=== PATIENT | male | born 1980 | race African-American/Black ===

== ENCOUNTER 2017-05-11 17:32 | Emergency (ER) | payer OTHER ==
[2017-05-11 17:48] VITALS: BP 150/90; PULSE 83; TEMP 98.4; BMI 25.7
[2017-05-11] MEDS ORDERED: HYDROmorphone HCL CARPU-JECT 2 MG/1 ML DISP.SYRIN IVPB ONE (18:24)
--- NOTE | 2017-05-11 18:29 | PDOC ---
History of Present Illness - General Chief Complaint: Pain, Acute Stated Complaint: PAIN, ACUTE Time Seen by Provider: 05/11/17 18:19 History Source: Patient - History of Present Illness Timing/Duration: other (today) Severity: severe Associated Symptoms: denies: chest pain, cough, fever/chills, headaches, nausea/ vomiting, shortness of breath, syncope Past History - Past Medical History Allergies/Adverse Reactions: Allergies Allergy/AdvReac Type Severity Reaction Status Date / Time No Known Allergies Allergy Verified 05/11/17 18:32 Home Medications: Ambulatory Orders Cholecalciferol (Vitamin D3) [Vitamin D3] 2,000 units PO DAILY 05/11/17 Cyanocobalamin (Vitamin B-12) [Vitamin B-12] 1,000 mg PO DAILY 05/11/17 Folic Acid 1 mg PO DAILY 05/11/17 Potassium Chloride 10 meq PO DAILY 05/11/17 Anemia: Yes (SICKLE CELL) - Immunization History Immunization Up to Date: Yes - Suicide/Smoking/Psychosocial Hx Suicidal Ideation: No Smoking History: Current every day smoker Number of Cigarettes Smoked Daily: 4 Information on smoking cessation initiated: No Hx Alcohol Use: No Drug/Substance Use Hx: No Substance Use Type: None Review of Systems - Review of Systems Constitutional: No: Chills, Fever Respiratory: No: Cough, Shortness of Breath Cardiac (ROS): No: Chest Pain, Lightheadedness, Palpitations ABD/GI: Yes: Abdominal cramping. No: Diarrhea, Nausea, Vomiting : No: Burning, Dysuria, Flank Pain Musculoskeletal: Yes: Back Pain, Joint Pain. No: Joint Swelling *Physical Exam - Vital Signs Last Vital Signs Temp Pulse Resp BP Pulse Ox 98.4 F 83 16 150/90 99 05/11/17 17:44 05/11/17 17:44 05/11/17 17:44 05/11/17 17:44 05/11/17 17:44 - Physical Exam General Appearance: Yes: Appropriately Dressed, Moderate Distress HEENT: positive: Normal Voice Neck: positive: Supple Respiratory/Chest: positive: Lungs Clear, Normal Breath Sounds. negative: Respiratory Distress Cardiovascular: positive: Regular Rate, S1, S2 Gastrointestinal/Abdominal: positive: Normal Bowel Sounds, Tender (diffusely), Soft. negative: Distended, Guarding, Rebound Musculoskeletal: positive: Other (diffuse ttp to back). negative: CVA Tenderness Extremity: positive: Normal Inspection, Normal Range of Motion, Other (no red, hot, swollen joint) Integumentary: positive: Dry, Warm, Other (well kam r chest port) Neurologic: positive: Fully Oriented, Alert, Normal Mood/Affect ED Treatment Course - LABORATORY CBC & Chemistry Diagram: 05/11/17 18:32 05/11/17 18:32 - RADIOLOGY Radiology Studies Ordered: Category Date Time Status CHEST X-RAY PORTABLE* [RAD] Stat Radiology 05/11/17 18:23 Ordered Medical Decision Making - Medical Decision Making 05/11/17 18:24 36-year-old male, history of sickle cell anemia on hydroxyurea, folic acid, and other vitamins, currently does not take any pain medication because he does not want build tolerance to meds as per patient, 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 Lagos, at [facility], was at work today in [employer] when he developed diffuse abdominal, back and multiple joint pain, consistent with his pain crisis. No cough, chest pain, shortness of breath, change in bowel movements, dysuria, nausea, vomiting, fever or chills. Patient states he has been getting more frequent pain crisis secondary to the weather. States most of the time he comes to the ED, he is usually treated and able to be discharged but occasionally needs admission. Of note, patient reports he is a very difficult stick and has subsequently had a right chest port placed, which is what ED staff uses. Last time was use was 1 month ago at outside ER with no difficulty as per patient See exam SSD w/ usual pain crises -pain control -IVF -labs -reassess 05/11/17 18:39 Signed out to ASHER Nguyen pending w/u and reassessment *DC/Admit/Observation/Transfer Diagnosis at time of Disposition: Sickle cell pain crisis, Hypokalemia - Discharge Dispostion Disposition: HOME - Patient Instructions Printed Discharge Instructions: Sickle Cell Anemia Additional Instructions: drink plenty of fluids take potassium tablet as previously prescribed. follow up with your doctor as soon as possible. return to the ER if symptoms worsen - Post Discharge Activity Work/School Note: Back to Work
[2017-05-11] MEDS ORDERED: DEXTROSE 5%-0.45% SALINE 1,000 ML IV SCH (18:30)
[2017-05-11] MEDS ORDERED: HYDROmorphone HCL CARPU-JECT 2 MG/1 ML DISP.SYRIN ONE ×2 (18:34→20:06)
--- NOTE | 2017-05-11 19:18 | PDOC ---
*Physical Exam - Vital Signs Last Vital Signs Temp Pulse Resp BP Pulse Ox 98.4 F 83 16 150/90 99 05/11/17 17:44 05/11/17 17:44 05/11/17 17:44 05/11/17 17:44 05/11/17 17:44 - Physical Exam General Appearance: Yes: Appropriately Dressed Respiratory/Chest: positive: Lungs Clear, Normal Breath Sounds Gastrointestinal/Abdominal: positive: Normal Bowel Sounds, Tender (generalized) , Soft Extremity: positive: Normal Capillary Refill Integumentary: positive: Normal Color, Dry, Warm Neurologic: positive: Fully Oriented, Alert ED Treatment Course - LABORATORY CBC & Chemistry Diagram: 05/11/17 18:32 05/11/17 18:32 - Medications Given in the ED: ED Medications Discontinued Medications Generic Name Dose Route Start Last Admin Trade Name Barrett PRN Reason Stop Dose Admin Hydromorphone HCl 2 mg 05/11/17 18:24 05/11/17 18:32 Dilaudid Injection - IVPB 05/11/17 18:25 2 mg ONCE ONE Administration Medical Decision Making - Medical Decision Making 05/11/17 19:56 Patient reports no relief in pain. pain is generalized abdomen, back and joints. reports normal hgb 10 last crisis was one month ago. 05/11/17 21:53 patient is reports pain relief. will follow up in hematology clinic at [facility] tomorrow. *DC/Admit/Observation/Transfer Diagnosis at time of Disposition: Sickle cell pain crisis, Hypokalemia - Discharge Dispostion Disposition: HOME - Patient Instructions Printed Discharge Instructions: Sickle Cell Anemia Additional Instructions: drink plenty of fluids take potassium tablet as previously prescribed. follow up with your doctor as soon as possible. return to the ER if symptoms worsen - Post Discharge Activity Work/School Note: Back to Work
[2017-05-11 19:19] LABS: BASOPHIL 0.7 % (0-2.0); EOSINOPHIL 0.5 % (0-4.5); MEAN PLT VOLUME 7.4 fl (7.5-11.1); NEUTROPHILS 53.6 % (42.8-82.8); PLATELET COUNT 226 K/MM3 (134-434); RDW 17.6 % (11.9-15.9); WHITE BLOOD COUNT 7.8 K/mm3 (4.0-10.0)
[2017-05-11 19:20] LABS: MCH 42.5 pg (25.7-33.7)
[2017-05-11 19:42] LABS: ALBUMIN 3.6 g/dl (3.4-5.0); ANION GAP 5 (8-16); BILIRUBIN,TOTAL 0.9 mg/dL (0.2-1.0); CO2 31 mmol/L (21-32); CREATININE 0.7 mg/dL (0.7-1.3); GLUCOSE,RANDOM 107 mg/dL (74-106); SGOT/AST 17 U/L (15-37); SGPT/ALT 22 U/L (12-78); TOT PROT 7.1 g/dl (6.4-8.2)
[2017-05-11 19:45] LABS: ALK PHOS 117 U/L (45-117); CPK 68 IU/L (39-308); TROPONIN I < 0.02 ng/ml (0.00-0.05)
[2017-05-11] MEDS ORDERED: HYDROmorphone HCL CARPU-JECT 2 MG/1 ML DISP.SYRIN IVPUSH ONE (19:56)
[2017-05-11] MEDS: KCL 10 MEQ IVPB 100 ML IVPB SCH ×2 (20:02→20:15)
[2017-05-11 20:07] LABS: MACROCYTOSIS 3+; PLATELET ESTIMATE ADEQUATE (NORMAL); POIKILOCYTOSIS 1+; POLYCHROMASIA 1+
[2017-05-11] MEDS ORDERED: KCL 10 MEQ IVPB 200 ML IVPB ONE (20:07)
[2017-05-11 20:08] LABS: OVALOCYTE 1+; TARGET CELLS 1+; TEAR DROP CELLS 1+
[2017-05-11 20:10] LABS: HOWELL-JOLLY BODIES SEEN
[2017-05-11] MEDS ORDERED: SODIUM CHLORIDE 1,000 ML IV SCH (20:15)
--- NOTE | 2017-05-12 09:42 | EKG ---
Test Reason : Blood Pressure : / mmHG Vent. Rate : 067 BPM Atrial Rate : 067 BPM P-R Int : 168 ms QRS Dur : 132 ms QT Int : 436 ms P-R-T Axes : 063 -05 068 degrees QTc Int : 460 ms NORMAL SINUS RHYTHM LEFT VENTRICULAR HYPERTROPHY WITH QRS WIDENING RIGHT BUNDLE BRANCH BLOCK ABNORMAL ECG NO PREVIOUS ECGS AVAILABLE Confirmed by WASHINGTON LOMBARDO MD ([id number]) on 05/12/2017 9:41:47 AM Referred By: Confirmed By:WASHINGTON LOMBARDO MD
== END 2017-05-11 22:05 | disposition home or self-care (01) ==
LOC: JER 17:32
PROC: 3E0337Z Introduction of Electrolytic and Water Balance Substance into Peripheral Vein, Percutaneous Approach (ICD-10-PCS; principal; 2017-05-11)
PROC: 3E033GC Introduction of Other Therapeutic Substance into Peripheral Vein, Percutaneous Approach (ICD-10-PCS; 2017-05-11)
DX: D57.00 Hb-SS disease with crisis, unspecified (principal); F17.210 Nicotine dependence, cigarettes, uncomplicated
CPT/HCPCS: 36415; 71010-TC; 80053; 84484; 85025; 85044; 93005; 93010; 99283-25

== ENCOUNTER 2017-06-27 10:32 | Emergency (ER) | payer OTHER ==
[2017-06-27 10:37] VITALS: TEMP 98.2; BMI 25.7
[2017-06-27] MEDS ORDERED: SODIUM CHLORIDE 1,000 ML IV ONE (11:06)
[2017-06-27] MEDS ORDERED: HYDROmorphone HCL CARPU-JECT 2 MG/1 ML DISP.SYRIN IVPUSH ONE ×2 (11:27→13:23)
--- NOTE | 2017-06-27 11:32 | PDOC ---
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 Lagos, at [facility], who presents to the emergency department with complaint of diffuse abdominal, shortness of breath, back pain and multiple joint pain, consistent with his usual sickle- cell pain crisis. The patient states he has been getting more frequent pain crisis secondary to the increased stress recently. He reports when he is seen in the ED for his crisis he usually receives 3 of Dilaudid, IV fluids, and sometimes potassium because it tends to be low. He denies chest pain, headache and dizziness. He denies fever, chills, nausea, vomit, diarrhea and constipation. He denies dysuria, frequency, urgency and hematuria. Allergies: NKDA Surgical Hx: cholecystectomy <Anushka Padilla - Last Filed: 06/27/17 11:37> <Omar Lopez - Last Filed: 06/27/17 14:56> - General Chief Complaint: Pain Stated Complaint: SICKLE CELL CRISIS Time Seen by Provider: 06/27/17 10:47 Past History <Anushka Padilla - Last Filed: 06/27/17 11:37> - Past Medical History Anemia: Yes (SICKLE CELL) CVA: No COPD: No - Surgical History Cholecystectomy: Yes - Immunization History Immunization Up to Date: Yes - Suicide/Smoking/Psychosocial Hx Smoking History: Current every day smoker Number of Cigarettes Smoked Daily: 10 Information on smoking cessation initiated: Yes 'Breaking Loose' booklet given: 06/27/17 Hx Alcohol Use: No Drug/Substance Use Hx: No Substance Use Type: None <Omar Lopez - Last Filed: 06/27/17 14:56> - Past Medical History Allergies/Adverse Reactions: Allergies Allergy/AdvReac Type Severity Reaction Status Date / Time No Known Allergies Allergy Verified 06/27/17 10:33 Home Medications: Ambulatory Orders Cholecalciferol (Vitamin D3) [Vitamin D3] 2,000 units PO DAILY 05/11/17 Cyanocobalamin (Vitamin B-12) [Vitamin B-12] 1,000 mg PO DAILY 05/11/17 Folic Acid 1 mg PO DAILY 05/11/17 Potassium Chloride 10 meq PO DAILY 05/11/17 Hydroxyurea [Hydrea 500Mg Capsule -] 1,000 mg PO DAILY 06/27/17 Magnesium Oxide [Mag-Ox -] 800 mg PO DAILY 06/27/17 Multivitamin [One Daily] 1 each PO DAILY 06/27/17 Review of Systems - Review of Systems Able to Perform ROS?: Yes <Anushka Padilla - Last Filed: 06/27/17 11:37> - Review of Systems Constitutional: No: Chills, Fever HEENTM: Yes: Nose Congestion. No: Throat Pain Respiratory: No: Cough, Shortness of Breath Cardiac (ROS): No: Chest Pain, Edema, Palpitations, Syncope ABD/GI: No: Diarrhea, Nausea, Vomiting : No: Frequency, Hematuria Musculoskeletal: Yes: Joint Pain, Muscle Pain Neurological: No: Headache All Other Systems: Reviewed and Negative <Omar Lopez - Last Filed: 06/27/17 14:56> *Physical Exam - Vital Signs Last Vital Signs Temp Pulse Resp BP Pulse Ox 98.2 F 73 20 144/97 99 06/27/17 10:33 06/27/17 10:33 06/27/17 10:33 06/27/17 10:33 06/27/17 10:33 - Physical Exam Comments: 06/27/17 11:37 GENERAL: The patient is awake, alert, and fully oriented, in no acute distress. HEAD: Normal with no signs of trauma. EYES: Pupils equal, round and reactive to light, extraocular movements intact, sclera anicteric, conjunctiva clear with no pallor. ENT: Ears normal, nares patent, oropharynx clear without exudates. Moist mucous membranes. NECK: Normal range of motion, supple without lymphadenopathy, JVD, or masses. LUNGS: Breath sounds equal, clear to auscultation bilaterally. No wheeze/ crackles. HEART: (+) Systolic ejection murmur. Regular rate and rhythm, normal S1 and S2 without rubs or gallops. ABDOMEN: Soft/nontender/nondistended. BS wnl. No guarding or rebound. No palpable masses. No hepatosplenomegaly. EXTREMITIES: (+) Decreased strength to bilateral hands secondary to pain. Normal range of motion, no edema. No clubbing or cyanosis. No cords, erythema, or tenderness. NEUROLOGICAL: Cranial nerves II through XII grossly intact. Normal speech, normal gait. PSYCH: Normal mood, normal affect. SKIN: Warm, Dry, normal turgor, no rashes or lesions noted. <Anushka Padilla - Last Filed: 06/27/17 11:37> - Vital Signs Last Vital Signs Temp Pulse Resp BP Pulse Ox 98.2 F 73 20 144/97 99 06/27/17 10:33 06/27/17 10:33 06/27/17 10:33 06/27/17 10:33 06/27/17 10:33 <Omar Lopez - Last Filed: 06/27/17 14:56> ED Treatment Course - LABORATORY CBC & Chemistry Diagram: 06/27/17 12:10 06/27/17 12:10 <Omar Lopez - Last Filed: 06/27/17 14:56> Medical Decision Making - Medical Decision Making 06/27/17 11:29 A portion of this note was documented by scribe services under my direction. I have reviewed the details of the note, within reason, and agree with the documentation with the following case summary and management plan written by me. 36-year-old male with history of sickle cell followed primarily at [facility] hematology clinic maintained on folic acid and hydroxyurea with complications in the past as noted presents with body aches for about 24 hours typical of his past crisis pain. Reports extremity and abdominal pains in the setting of 1-2 days of nasal congestion/rhinorrhea, no specific chest pain or difficulty breathing, no fevers or chills. Patient has ED visits every 2-3 months, last here about 6 weeks ago. Last admission was about 4 months ago, last transfusion was about one to 2 years ago. Vital signs normal. Mild distress secondary to pain, otherwise no respiratory distress. Lungs are clear, initial inspiratory basilar crackles that clear consistent with atelectasis Abdomen is soft No evidence of joint swelling or warmth or effusion, neurovascularly intact throughout 36-year-old male with sickle cell crisis, normal vital signs and without any respiratory distress. Likely crisis in the setting of possible viral URI. Check labs, chest x-ray IV fluids, pain control Reassess 06/27/17 14:52 K remains low at 2.9 and was repleted. CXR without acute changes or abnormalities. CBC at baseline with Hgb 9.1 and retic count 5.29. LFT wnl. Pt received dilaudid 2mg IV x2 with resolution of his sxs, now sitting up and eating a sandwich. Feels much better, pain has resolved, requesting discharge and f/u with his [facility] Maker at [facility]. understands return criteria, has his meds at home. <Omar Lopez - Last Filed: 06/27/17 14:56> *DC/Admit/Observation/Transfer - Attestations Scribe Attestion: 06/27/17 11:38 Documentation prepared by Anushka Padilla, acting as medical surgical tech for Omar Lopez MD, <Anushka Padilla - Last Filed: 06/27/17 11:37> <Omar Lopez - Last Filed: 06/27/17 14:56> Diagnosis at time of Disposition: Sickle cell pain crisis - Discharge Dispostion Disposition: HOME Condition at time of disposition: Improved - Referrals Referrals: STAFF,NOT ON [Primary Care Provider] - Ludwin Nguyen MD [Staff Physician] - - Patient Instructions Printed Discharge Instructions: DI for Sickle Cell Anemia, Pain Crisis -- Adult Additional Instructions: Activity as tolerated. Stay hydrated. Continue your current pain medications as previously prescribed. Continue your medications as previously prescribed by your physician. You should follow up with your resident intern at her [facility] as soon as possible regarding today's emergency department visit. If you need an appointment with a primary physician, consider calling Dr. Nguyen . Return to the emergency department for any new or concerning symptoms, particularly persistent or worsening pain, fevers or chills, chest pain or difficulty breathing, severe redness or swelling.
[2017-06-27] MEDS ORDERED: HYDROmorphone HCL CARPU-JECT 2 MG/1 ML DISP.SYRIN ONE ×2 (11:54→13:44)
[2017-06-27 12:23] LABS: MCHC 34.9 g/dl (32.0-35.9); MEAN CELL VOLUME 115.2 fl (80-96); MEAN PLT VOLUME 6.9 fl (7.5-11.1); PLATELET COUNT 304 K/MM3 (134-434); RDW 17.5 % (11.9-15.9)
[2017-06-27 12:37] LABS: MCH 40.2 pg (25.7-33.7)
[2017-06-27 12:41] LABS: ALBUMIN 3.8 g/dl (3.4-5.0); ALK PHOS 103 U/L (45-117); ANION GAP 7 (8-16); BILIRUBIN,TOTAL 0.8 mg/dL (0.2-1.0); CALCIUM 8.2 mg/dL (8.5-10.1); CO2 30 mmol/L (21-32); CREATININE 0.6 mg/dL (0.7-1.3); GLUCOSE,RANDOM 90 mg/dL (74-106); LDH 260 U/L (87-241); SGOT/AST 20 U/L (15-37); SGPT/ALT 25 U/L (12-78); TOT PROT 7.2 g/dl (6.4-8.2)
[2017-06-27] MEDS ORDERED: POTASSIUM CHLORIDE 20 MEQ PREMIX IVPB 100 ML IVPB ONE (13:54)
[2017-06-27] MEDS ORDERED: KCL 10 MEQ IVPB ONE (13:58)
[2017-06-27 15:46] LABS: ANISOCYTOSIS 3+; HYPOCHROMIA 1+; MACROCYTOSIS 2+; NUCLEATED RED BLOOD CELL 1 % (0-0); PLATELET ESTIMATE ADEQUATE (NORMAL); POIKILOCYTOSIS 1+; TOTAL CELLS COUNTED 100
[2017-06-27 15:47] LABS: TARGET CELLS 2+
[2017-06-27 16:04] VITALS: BP 134/74; PULSE 68
== END 2017-06-27 16:04 | disposition home or self-care (01) ==
LOC: JER 10:32
PROC: 3E033NZ Introduction of Analgesics, Hypnotics, Sedatives into Peripheral Vein, Percutaneous Approach (ICD-10-PCS; principal; 2017-06-27)
PROC: 3E0337Z Introduction of Electrolytic and Water Balance Substance into Peripheral Vein, Percutaneous Approach (ICD-10-PCS; 2017-06-27)
PROC: 3E0337Z Introduction of Electrolytic and Water Balance Substance into Peripheral Vein, Percutaneous Approach (ICD-10-PCS; 2017-06-27)
DX: D57.00 Hb-SS disease with crisis, unspecified (principal); E87.6 Hypokalemia
CPT/HCPCS: 36415; 71020-TC; 80053; 83615; 85025; 85044; 86850; 86870; 86900; 86901; 86902; 96361; 96374; 96375; 99282-25

== ENCOUNTER 2017-08-09 09:58 | Emergency (ER) | payer OTHER ==
[2017-08-09 10:06] VITALS: BMI 26.2
[2017-08-09] MEDS ORDERED: SODIUM CHLORIDE 1,000 ML IV STA (11:06)
[2017-08-09] MEDS ORDERED: KETOROLAC TROMETHAMINE 30 MG/1 ML VIAL IVPUSH ONE (11:06)
[2017-08-09] MEDS ORDERED: HYDROmorphone HCL CARPU-JECT 1 MG/1 ML DISP.SYRIN IVPUSH ONE ×2 (11:06→13:25)
[2017-08-09] MEDS ORDERED: HYDROmorphone HCL CARPU-JECT 2 MG/1 ML DISP.SYRIN ONE (11:20)
[2017-08-09] MEDS ORDERED: KETOROLAC TROMETHAMINE 15 MG/ML VIAL ONE (11:21)
[2017-08-09 11:41] LABS: EOSINOPHIL 0.2 % (0-4.5); MCHC 34.6 g/dl (32.0-35.9); MEAN CELL VOLUME 115.6 fl (80-96); MEAN PLT VOLUME 7.8 fl (7.5-11.1); NEUTROPHILS 76.7 % (42.8-82.8); PLATELET COUNT 263 K/MM3 (134-434); RDW 18.4 % (11.9-15.9); WHITE BLOOD COUNT 5.8 K/mm3 (4.0-10.0)
--- NOTE | 2017-08-09 11:53 | PDOC ---
History of Present Illness <Davy Hayward - Last Filed: 08/09/17 11:58> - History of Present Illness Initial Comments: 08/09/17 11:47 "The patient is a 37 year old male with a significant PMH of sickle cell anemia , acute chest, pneumonia, and hypokalemia who presents to the emergency department with upper back pain beginning 2 days ago. The patient reports that his back pain is aggravated by inspiration, but he denies CP/SOB. The back pain is accompanied by joint pain. He states that these symptoms are consistent with his typical sickle cell crises. He reports that his sickle cell crises are usually triggered by extreme temperatures hot or cold, dehydration, and stress. He denies taking any medication for pain at home. HOWEVER, review of pt's I- stop shows 15 prescriptions for narcotic pain medications in the past year, from various providers. Most recent prescription was written 2 days ago for 20 tablets of oxycodone 5mg. The patient denies chest pain, headache and dizziness. Denies fever, chills, nausea, vomit, diarrhea and constipation. Denies dysuria, frequency, urgency and hematuria. Allergies: NKA Past surgical history: None reported. Social history: Current everyday smoker. No reported alcohol or drug use. PCP: None reported. " <Jb Diallo - Last Filed: 08/09/17 13:41> - General Chief Complaint: Sickle Cell Crisis Stated Complaint: SICKLE CELL CRISIS Time Seen by Provider: 08/09/17 10:48 Past History <Davy Hayward - Last Filed: 08/09/17 11:58> - Past Medical History Anemia: Yes (SICKLE CELL) CVA: No COPD: No - Surgical History Cholecystectomy: Yes - Immunization History Immunization Up to Date: Yes - Suicide/Smoking/Psychosocial Hx Smoking History: Current every day smoker Number of Cigarettes Smoked Daily: 2 Information on smoking cessation initiated: No 'Breaking Loose' booklet given: 06/27/17 Hx Alcohol Use: No Drug/Substance Use Hx: No Substance Use Type: None <Jb Diallo - Last Filed: 08/09/17 13:41> - Past Medical History Allergies/Adverse Reactions: Allergies Allergy/AdvReac Type Severity Reaction Status Date / Time No Known Allergies Allergy Verified 08/09/17 10:06 Home Medications: Ambulatory Orders Cholecalciferol (Vitamin D3) [Vitamin D3] 2,000 units PO DAILY 05/11/17 Cyanocobalamin (Vitamin B-12) [Vitamin B-12] 1,000 mg PO DAILY 05/11/17 Folic Acid 1 mg PO DAILY 05/11/17 Potassium Chloride 10 meq PO DAILY 05/11/17 Hydroxyurea [Hydrea 500Mg Capsule -] 1,000 mg PO DAILY 06/27/17 Magnesium Oxide [Mag-Ox -] 800 mg PO DAILY 06/27/17 Multivitamin [One Daily] 1 each PO DAILY 06/27/17 Review of Systems - Review of Systems Comments:: 08/09/17 11:53 "GENERAL/CONSTITUTIONAL: No fever or chills. No weakness. HEAD, EYES, EARS, NOSE AND THROAT: No change in vision. No ear pain or discharge. No sore throat. CARDIOVASCULAR: No chest pain or shortness of breath. RESPIRATORY: No SOB. No cough, wheezing, or hemoptysis. GASTROINTESTINAL: No nausea, vomiting, diarrhea or constipation. GENITOURINARY: No dysuria, frequency, or change in urination. MUSCULOSKELETAL: (+) R Upper back pain. No joint pain. No back pain. SKIN: No rash NEUROLOGIC: No headache, vertigo, loss of consciousness, or change in strength/ sensation. ENDOCRINE: No increased thirst. No abnormal weight change. HEMATOLOGIC/LYMPHATIC: No anemia, easy bleeding, or history of blood clots. ALLERGIC/IMMUNOLOGIC: No hives or skin allergy. " <Jb Diallo - Last Filed: 08/09/17 13:41> *Physical Exam - Vital Signs Last Vital Signs Temp Pulse Resp BP Pulse Ox 98.1 F 88 20 148/104 100 08/09/17 10:03 08/09/17 10:03 08/09/17 10:03 08/09/17 10:03 08/09/17 10:03 <Davy Hayward - Last Filed: 08/09/17 11:58> - Vital Signs Last Vital Signs Temp Pulse Resp BP Pulse Ox 98.1 F 88 20 148/104 100 08/09/17 10:03 08/09/17 10:03 08/09/17 10:03 08/09/17 10:03 08/09/17 10:03 - Physical Exam Comments: 08/09/17 11:53 "GENERAL: Awake, alert, and fully oriented, in no acute distress HEAD: No signs of trauma EYES: PERRLA, EOMI, sclera anicteric, conjunctiva clear ENT: Auricles normal inspection, hearing grossly normal, nares patent, oropharynx clear without exudates. Moist mucosa NECK: Nontender, no stepoffs, Normal ROM, supple, no lymphadenopathy, JVD, or masses LUNGS: Breath sounds equal, clear to auscultation bilaterally. No wheezes, and no crackles HEART: Regular rate and rhythm, normal S1 and S2, no murmurs, rubs or gallops ABDOMEN: Soft, nontender, normoactive bowel sounds. No guarding, no rebound. No masses EXTREMITIES: Normal range of motion, no edema. No clubbing or cyanosis. No cords, erythema, or tenderness NEUROLOGICAL: Cranial nerves II through XII intact. 5/5 strength and sensation in all extremities, Normal speech, normal gait SKIN: Warm, Dry, normal turgor, no rashes or lesions noted. " <Jb Diallo - Last Filed: 08/09/17 13:41> ED Treatment Course - LABORATORY CBC & Chemistry Diagram: 08/09/17 11:18 08/09/17 11:18 - ADDITIONAL ORDERS Additional order review: 08/09/17 11:18 RBC 2.44 L MCV 115.6 H MCHC 34.6 RDW 18.4 H MPV 7.8 D Neutrophils % 76.7 D Lymphocytes % 19.4 D Monocytes % 2.7 L Eosinophils % 0.2 Basophils % 1.0 - Medications Given in the ED: ED Medications Discontinued Medications Generic Name Dose Route Start Last Admin Trade Name Barrett PRN Reason Stop Dose Admin Hydromorphone HCl 2 mg 08/09/17 11:06 08/09/17 11:32 Dilaudid Injection - IVPUSH 08/09/17 11:07 2 mg ONCE ONE Administration Ketorolac Tromethamine 15 mg 08/09/17 11:06 08/09/17 11:32 Toradol Injection - IVPUSH 08/09/17 11:07 15 mg ONCE ONE Administration <Davy Hayward - Last Filed: 08/09/17 11:58> - LABORATORY CBC & Chemistry Diagram: 08/09/17 11:18 08/09/17 11:18 - ADDITIONAL ORDERS Additional order review: 08/09/17 11:18 RBC 2.44 L MCV 115.6 H MCHC 34.6 RDW 18.4 H MPV 7.8 D Neutrophils % 76.7 D Lymphocytes % 19.4 D Monocytes % 2.7 L Eosinophils % 0.2 Basophils % 1.0 - RADIOLOGY Radiology Studies Ordered: Category Date Time Status CHEST PA & LAT [RAD] Stat Radiology 08/09/17 11:04 Ordered - Medications Given in the ED: ED Medications Discontinued Medications Generic Name Dose Route Start Last Admin Trade Name Barrett PRN Reason Stop Dose Admin Hydromorphone HCl 2 mg 08/09/17 11:06 08/09/17 11:32 Dilaudid Injection - IVPUSH 08/09/17 11:07 2 mg ONCE ONE Administration Ketorolac Tromethamine 15 mg 08/09/17 11:06 08/09/17 11:32 Toradol Injection - IVPUSH 08/09/17 11:07 15 mg ONCE ONE Administration <Jb Diallo - Last Filed: 08/09/17 13:41> Medical Decision Making - Medical Decision Making 08/09/17 11:53 37 M with SCD complaining of R upper back pain, consistent with prior sickle cell crises. Pt HD stable with no evidence of acute chest on exam - no CP/SOB. - Labs, retics, LDH - IVF - Conservative pain management, as pt has several recent prescriptions for pain meds dispensed 08/09/17 13:26 Pt reassessed - pain now well controlled. Labs consistent with sickle cell crisis. CXR clear. Vitals stable, pt well appearing. Clinically stable for DC. <Jb Diallo - Last Filed: 08/09/17 13:41> *DC/Admit/Observation/Transfer - Attestations Scribe Attestion: 08/09/17 11:58 Documentation prepared by Davy Hayward, acting as medical administrator for Jb Diallo MD. <Davy Hayward - Last Filed: 08/09/17 11:58> - Attestations Physician Attestion: 08/09/17 13:41 I, Dr. Jb Diallo MD, attest that this document has been prepared under my direction and personally reviewed by me in its entirety. I further attest, that it accurately reflects all work, treatment, procedures and medical decision -making performed by me. <Jb Diallo - Last Filed: 08/09/17 13:41> Diagnosis at time of Disposition: Sickle cell pain crisis - Discharge Dispostion Disposition: HOME - Patient Instructions Printed Discharge Instructions: DI for Sickle Cell Anemia, Pain Crisis -- Adult Additional Instructions: Follow up with your flat machine cutter within 1 week for a re-evaluation. If you experience worsening pain, shortness of breath, fevers, or any other concerning symptoms, return to the ER immediately.
[2017-08-09 12:13] LABS: INR 1.14 (0.82-1.09); PROTHROMBIN TIME (PATIENT) 12.9 SEC (9.98-11.88)
[2017-08-09 12:16] LABS: ACTIVATED PTT 31.1 SECONDS (26.9-34.4)
[2017-08-09 12:26] LABS: ALBUMIN 3.9 g/dl (3.4-5.0); ANION GAP 7 (8-16); BILIRUBIN,TOTAL 0.9 mg/dL (0.2-1.0); CALCIUM 8.6 mg/dL (8.5-10.1); CO2 29 mmol/L (21-32); CREATININE 0.7 mg/dL (0.7-1.3); GLUCOSE,RANDOM 100 mg/dL (74-106); SGPT/ALT 46 U/L (12-78); TOT PROT 7.8 g/dl (6.4-8.2)
[2017-08-09 12:27] LABS: ALK PHOS 109 U/L (45-117)
[2017-08-09 12:30] LABS: LDH 402 U/L (87-241); SGOT/AST 37 U/L (15-37)
[2017-08-09] MEDS ORDERED: HYDROmorphone HCL CARPU-JECT 1 MG/1 ML DISP.SYRIN ONE (13:39)
[2017-08-09 14:06] VITALS: BP 151/83; PULSE 70; TEMP 98.3
[2017-08-09 15:09] LABS: HIV 1 & 2 AB NEGATIVE; HIV 1 AGp24 NEGATIVE
== END 2017-08-09 14:46 | disposition home or self-care (01) ==
LOC: JER 09:58
PROC: 3E033NZ Introduction of Analgesics, Hypnotics, Sedatives into Peripheral Vein, Percutaneous Approach (ICD-10-PCS; principal; 2017-08-09)
PROC: 3E0333Z Introduction of Anti-inflammatory into Peripheral Vein, Percutaneous Approach (ICD-10-PCS; 2017-08-09)
DX: D57.00 Hb-SS disease with crisis, unspecified (principal)
CPT/HCPCS: 36415; 71020-TC; 80053; 83615; 85025; 85044; 85610; 85730; 86850; 86870; 86900; 86901; 86902; 87389; 99285-25

== ENCOUNTER 2019-02-25 23:26 | Emergency (ER) | payer OTHER ==
[2019-02-25 23:58] VITALS: TEMP 98.5; BMI 57.8
--- NOTE | 2019-02-26 01:31 | PDOC ---
Attending Attestation - Resident Resident Name: Marcio Ledbetter - ED Attending Attestation I have performed the following: I have examined & evaluated the patient, The case was reviewed & discussed with the resident, I agree w/resident's findings & plan - HPI HPI: 02/26/19 03:43 38-year-old male with pain to the right hip and right shoulder consistent with sickle cell crisis. Patient denies chest pain fever vomiting or abdominal pain. - Physicial Exam PE: 02/26/19 03:43 GENERAL: Awake, in no acute distress HEAD: No signs of trauma EYES: ENT:clear without exudates. Moist mucosa NECK: Normal ROM, LUNGS:. Normal work of breathing. HEART: Regular rate and rhythm, ABDOMEN: Soft, nondistended CHEST WALL: BACK: No midline tenderness. EXTREMITIES:. No erythema, or tenderness NEUROLOGICAL: Alert, SKIN: Warm, Dry - Medical Decision Making 02/26/19 03:44 38-year-old male with history of sickle cell disease complaining of multiple arthralgias Dilaudid 2 mg IV push 2 Plan for IV fluids, reevaluation and if necessary admission for continued pain control By mouth potassium replacement for potassium of 2.9
[2019-02-26] MEDS ORDERED: HYDROmorphone HCL CARPU-JECT 2 MG/1 ML DISP.SYRIN IVPUSH ONE ×2 (01:33→03:41)
[2019-02-26] MEDS ORDERED: SODIUM CHLORIDE 1,000 ML IV STA (01:34)
[2019-02-26] MEDS ORDERED: HYDROmorphone HCl 2 MG/ML VIAL ONE ×2 (01:54→03:49)
[2019-02-26 03:14] LABS: INR 1.13 (0.83-1.09); PROTHROMBIN TIME (PATIENT) 13.4 SEC (9.7-13.0)
[2019-02-26 03:36] LABS: ALBUMIN 3.8 g/dl (3.4-5.0); CALCIUM 8.2 mg/dL (8.5-10.1); CREATININE 0.8 mg/dL (0.55-1.3)
[2019-02-26 03:39] LABS: POTASSIUM 2.9 mmol/L (3.5-5.1)
[2019-02-26] MEDS ORDERED: POTASSIUM CHLORIDE ORAL LIQUID 20 MEQ/15 ML PO ONE (03:43)
[2019-02-26 04:06] LABS: BASO % 0.8 % (0-2.0); EOS % 1.1 % (0-4.5); HEMATOCRIT 25.4 % (35.4-49); HEMOGLOBIN 8.6 GM/dL (11.7-16.9); LYMPH % 37.1 % (8-40); MCH 36.3 pg (25.7-33.7); MCHC 33.9 g/dl (32.0-35.9); MEAN CELL VOLUME 107.1 fl (80-96); MEAN PLT VOLUME 7.2 fl (7.5-11.1); MONO % 5.5 % (3.8-10.2); NEUT % 55.5 % (42.8-82.8); PLATELET COUNT 374 K/MM3 (134-434); RBC 2.38 M/mm3 (4.00-5.60); RDW 26.1 % (11.9-15.9); RETICULOCYTES 6.41 % (0.5-1.5); WHITE BLOOD COUNT 9.7 K/mm3 (4.0-10.0)
[2019-02-26] MEDS ORDERED: POTASSIUM CHLORIDE ORAL LIQUID 20 MEQ/15 ML ONE (04:22)
[2019-02-26 04:45] VITALS: BP 136/84; PULSE 88
--- NOTE | 2019-02-26 04:58 | PDOC ---
History of Present Illness - General Chief Complaint: Sickle Cell Crisis Stated Complaint: SICKEL CELL/PAIN Time Seen by Provider: 02/26/19 01:20 History Source: Patient Exam Limitations: No Limitations - History of Present Illness Initial Comments: 02/26/19 04:54 38 yo male pmh of sickle cell disease presents to the ED with complaint of sickle cell flare. Pts reportedly taking hydroxyurea, folic acid, potassium and magnesium supplements, Vitamin D3, and Vitamin B12 and gets transfused every 4- 6 months. Pt regional program manager is Dr. Billingsley through [facility], next appointment 1 month. Pt complains of diffuse abdominal pain radiating to his back and multiple joints that is of the same quality, intensity and location as past sickle cell flares. Pt states stress , cold and hot weather are known triggers and states the recent warm weather caused the flare today. Pt is usually given Benadryl, IV fluids and 3 mg Dilaudid X 2 and if he requires 3 doses, he is usually admitted. Pt denies chest pain, headache and dizziness, F/C/N/V, diarrhea and constipation. Also denies dysuria, frequency, urgency and hematuria. Past History - Past Medical History Allergies/Adverse Reactions: Allergies Allergy/AdvReac Type Severity Reaction Status Date / Time No Known Allergies Allergy Verified 02/25/19 23:58 Home Medications: Ambulatory Orders Cholecalciferol (Vitamin D3) [Vitamin D3] 2,000 units PO DAILY 05/11/17 Cyanocobalamin (Vitamin B-12) [Vitamin B-12] 1,000 mg PO DAILY 05/11/17 Folic Acid 1 mg PO DAILY 05/11/17 Potassium Chloride 10 meq PO DAILY 05/11/17 Hydroxyurea [Hydrea 500Mg Capsule -] 1,000 mg PO DAILY 06/27/17 Magnesium Oxide [Mag-Ox -] 800 mg PO DAILY 06/27/17 Multivitamin [One Daily] 1 each PO DAILY 06/27/17 Oxycodone HCl/Acetaminophen [Percocet 5-325 mg Tablet] 1 tab PO Q6H PRN 3 Days # 12 tablet MDD 4 02/26/19 Potassium Chloride [Klor-Con] 20 meq PO BID 2 Days #4 packet 02/26/19 Anemia: Yes (SICKLE CELL) CVA: No COPD: No - Surgical History Cholecystectomy: Yes - Immunization History Immunization Up to Date: Yes - Suicide/Smoking/Psychosocial Hx Smoking History: Never smoked Have you smoked in the past 12 months: No Number of Cigarettes Smoked Daily: 2 Information on smoking cessation initiated: No 'Breaking Loose' booklet given: 06/27/17 Hx Alcohol Use: No Drug/Substance Use Hx: No Substance Use Type: None Review of Systems - Review of Systems Constitutional: No: Chills, Fever, Weakness Respiratory: No: Cough, Shortness of Breath Cardiac (ROS): No: Chest Pain, Palpitations, Syncope ABD/GI: Yes: Other (diffuse abdominal pain ). No: Constipated, Diarrhea, Nausea , Vomiting : No: Burning, Dysuria, Discharge, Frequency, Flank Pain, Incontinence Musculoskeletal: Yes: Back Pain Neurological: No: Headache, Numbness, Paresthesia, Weakness *Physical Exam - Vital Signs Last Vital Signs Temp Pulse Resp BP Pulse Ox 98.5 F 88 18 136/84 98 02/25/19 23:26 02/26/19 04:44 02/26/19 04:44 02/26/19 04:44 02/26/19 04:44 - Physical Exam General Appearance: Yes: Nourished, Appropriately Dressed, Mild Distress HEENT: positive: EOMI, CAROLE, Hearing Grossly Normal. negative: Photophobia Neck: positive: Supple. negative: Carotid bruit Respiratory/Chest: positive: Lungs Clear, Normal Breath Sounds. negative: Accessory Muscle Use, Paradoxal Breathing, Crackles, Rales, Rhonchi, Stridor, Wheezing Cardiovascular: positive: Regular Rhythm, Regular Rate, S1, S2. negative: Edema , JVD, Murmur Vascular Pulses: Dorsalis-Pedis (R): 4+, Doralis-Pedis (L): 4+ Gastrointestinal/Abdominal: positive: Flat, Soft, Tenderness (diffuse). negative: Pulsatile Mass, Distended, Guarding, Rebound Extremity: positive: Normal Capillary Refill, Normal Inspection, Normal Range of Motion Integumentary: positive: Normal Color, Dry, Warm. negative: Pale, Cold, Clammy , Diaphoresis Neurologic: positive: pillowcase folder II-XII NML intact, Fully Oriented, Alert, Normal Mood/ Affect, Normal Response, Motor Strength 5/5 ED Treatment Course - LABORATORY CBC & Chemistry Diagram: 02/26/19 03:59 02/26/19 02:18 - ADDITIONAL ORDERS Additional order review: Laboratory Results 02/26/19 02/26/19 02:18 02:18 PT with INR 13.40 H INR 1.13 H Sodium 145 Potassium 2.9 L* Chloride 108 H Carbon Dioxide 28 Anion Gap 9 BUN 11.0 Creatinine 0.8 Est GFR (CKD-EPI)AfAm 130.42 Est GFR (CKD-EPI)NonAf 112.53 Random Glucose 142 H Calcium 8.2 L Total Bilirubin 1.0 AST 23 ALT 43 Alkaline Phosphatase 157 H Total Protein 7.0 Albumin 3.8 02/26/19 02/26/19 03:59 02:18 RBC 2.38 L Cancelled MCV 107.1 H Cancelled MCHC 33.9 Cancelled RDW 26.1 H Cancelled MPV 7.2 L Cancelled Neutrophils % 55.5 D Cancelled Lymphocytes % 37.1 D Cancelled Monocytes % 5.5 D Cancelled Eosinophils % 1.1 D Cancelled Basophils % 0.8 Cancelled - Medications Given in the ED: ED Medications Discontinued Medications Generic Name Dose Route Start Last Admin Trade Name Jaceq PRN Reason Stop Dose Admin Diphenhydramine HCl 25 mg 02/26/19 01:34 02/26/19 02:10 Benadryl Injection - IVPUSH 02/26/19 01:35 25 mg ONCE ONE Administration Hydromorphone HCl 2 mg 02/26/19 01:33 02/26/19 02:10 Dilaudid Injection - IVPUSH 02/26/19 01:34 2 mg ONCE ONE Administration Hydromorphone HCl 2 mg 02/26/19 03:41 02/26/19 03:57 Dilaudid Injection - IVPUSH 02/26/19 03:42 2 mg ONCE ONE Administration Sodium Chloride 1,000 mls @ 1,000 mls/hr 02/26/19 01:34 02/26/19 02:10 Normal Saline - IV 02/26/19 02:33 1,000 mls/hr ASDIR STA Administration Potassium Chloride 40 meq 02/26/19 03:43 02/26/19 04:27 Potassium Chloride Oral Liquid PO 02/26/19 03:44 40 meq ONCE ONE Administration Medical Decision Making - Medical Decision Making 02/26/19 05:26 38 yo male pmh of sickle cell disease presents to the ED with complaint of sickle cell flare. Pts reportedly taking hydroxyurea, folic acid, potassium and magnesium supplements, Vitamin D3, and Vitamin B12 and gets transfused every 4- 6 months. Pt regional program manager is Dr. Billignsley through [facility], next appointment 1 month. Pt complains of diffuse abdominal pain radiating to his back and multiple joints that is of the same quality, intensity and location as past sickle cell flares. Pt states stress , cold and hot weather are known triggers and states the recent warm weather caused the flare today. Pt is usually given Benadryl, IV fluids and 3 mg Dilaudid X 2 and if he requires 3 doses, he is usually admitted. Pt denies chest pain, headache and dizziness, F/C/N/V, diarrhea and constipation. Also denies dysuria, frequency, urgency and hematuria. Vitals WNL Pt has suffered many flare ups of sickle cell crisis documented well on our EMR and likely is suffering from another one. Will treat accordingly with 2 mg push of Dilaudid, 25 mg IV Benadryl and 1L NS and reassess Labs including retic count ordered hemoglobin within pts normal limit Retic count elevated On reassessment pt continues to be in sig pain, another 2 mg Dilaudid given Pt pain resolved with medication Will DC pt home with PCP and hematology f/u and strict return precautions Pt understands plan *DC/Admit/Observation/Transfer Diagnosis at time of Disposition: Pain - Discharge Dispostion Disposition: HOME Condition at time of disposition: Fair - Prescriptions Prescriptions: Oxycodone HCl/Acetaminophen [Percocet 5-325 mg Tablet] 1 tab PO Q6H PRN 3 Days # 12 tablet MDD 4 PRN Reason: Pain Potassium Chloride [Klor-Con] 20 meq PO BID 2 Days #4 packet - Referrals Referrals: Mahdi Martinez MD [Primary Care Provider] - - Patient Instructions Printed Discharge Instructions: DI for Sickle Cell Anemia, Pain Crisis -- Adult - Post Discharge Activity
[2019-02-26 05:30] LABS: ANISOCYTOSIS 2+; MACROCYTOSIS 1+; PLATELET ESTIMATE NORMAL; TARGET CELLS 2+
== END 2019-02-26 04:54 | disposition home or self-care (01) ==
LOC: JER 23:26
PROC: 3E033GC Introduction of Other Therapeutic Substance into Peripheral Vein, Percutaneous Approach (ICD-10-PCS; principal; 2019-02-25)
PROC: 3E033NZ Introduction of Analgesics, Hypnotics, Sedatives into Peripheral Vein, Percutaneous Approach (ICD-10-PCS; 2019-02-25)
PROC: 3E033NZ Introduction of Analgesics, Hypnotics, Sedatives into Peripheral Vein, Percutaneous Approach (ICD-10-PCS; 2019-02-25)
DX: D57.00 Hb-SS disease with crisis, unspecified (principal)
CPT/HCPCS: 36415; 80053; 85025; 85044; 85610; 96374; 96375; 96376; 99284-25; J7030

== ENCOUNTER 2019-05-02 10:47 | Emergency (ER) | payer OTHER ==
[2019-05-02 11:32] VITALS: TEMP 98.1; BMI 27.2
[2019-05-02] MEDS ORDERED: SODIUM CHLORIDE 0.9% 500 ML INFUS.BAG IV ONE (12:30)
--- NOTE | 2019-05-02 12:32 | PDOC ---
History of Present Illness - General Chief Complaint: Sickle Cell Crisis Stated Complaint: SICKLE CELL CRISIS Time Seen by Provider: 05/02/19 12:03 History Source: Patient - History of Present Illness Initial Comments: 05/02/19 Mr. Hernandez is a 38 y/o M with hx sickle cell disease p/w two hours of fully body pain, including his stomach, back, arms, and legs. He reports that the pain woke him up from sleep two hours ago, 9/10, sharp, and constant since onset. He reports that this feels similar to his prior episodes of sickle crisis. He reports having a port in place due to his poor vasculature secondary to sickle cell. He denies taking any medications at home for pain, and reports that he does not currently have any prescriptions for pain medication. He reports taking hydroxyurea for the sickle cell, and that he takes it every day. He reports that his last crisis was two months ago, and that at that time he received benadryl with dilaudid to control the pain. He reports that in the past he has needed to be admitted as the pain was unable to be controlled in the ED. History of avascular necrosis of R shoulder, cholecystectomy secondary to sickle cell. He denies any chest pain, shortness of breath, fatigue, confusion, weakness, fever, chills. PCP: Mahdi Pak Past History - Past Medical History Allergies/Adverse Reactions: Allergies Allergy/AdvReac Type Severity Reaction Status Date / Time ceftizoxime Allergy Verified 05/02/19 11:06 Home Medications: Ambulatory Orders Cholecalciferol (Vitamin D3) [Vitamin D3] 2,000 units PO DAILY 05/11/17 Cyanocobalamin (Vitamin B-12) [Vitamin B-12] 1,000 mg PO DAILY 05/11/17 Folic Acid 1 mg PO DAILY 05/11/17 Hydroxyurea [Hydrea 500Mg Capsule -] 1,000 mg PO DAILY 06/27/17 Magnesium Oxide [Mag-Ox -] 800 mg PO DAILY 06/27/17 Multivitamin [One Daily] 1 each PO DAILY 06/27/17 Potassium Chloride [Klor-Con] 20 meq PO BID 2 Days #4 packet 02/26/19 Anemia: Yes (SICKLE CELL) CVA: No COPD: No Other medical history: RT CHEST PORT - Surgical History Cholecystectomy: Yes - Immunization History Immunization Up to Date: Yes - Suicide/Smoking/Psychosocial Hx Smoking History: Never smoked Have you smoked in the past 12 months: No Number of Cigarettes Smoked Daily: 2 Information on smoking cessation initiated: No 'Breaking Loose' booklet given: 06/27/17 Hx Alcohol Use: No Drug/Substance Use Hx: No Substance Use Type: None Review of Systems - Review of Systems Able to Perform ROS?: Yes Comments:: 05/02/19 12:39 ROS: GENERAL/CONSTITUTIONAL: No fever or chills. No weakness. HEAD, EYES, EARS, NOSE AND THROAT: No change in vision. No ear pain or discharge. No sore throat. CARDIOVASCULAR: No chest pain or shortness of breath RESPIRATORY: No cough, wheezing, or hemoptysis. GASTROINTESTINAL: Diffuse abdominal pain. No nausea, vomiting, diarrhea or constipation. GENITOURINARY: No dysuria, frequency, or change in urination. MUSCULOSKELETAL: Diffuse pain in arms, legs, back, abdomen. No joint or muscle swelling. SKIN: No rash NEUROLOGIC: No headache, vertigo, loss of consciousness, or change in strength/ sensation. ENDOCRINE: No increased thirst. No abnormal weight change HEMATOLOGIC/LYMPHATIC: No anemia, easy bleeding ALLERGIC/IMMUNOLOGIC: No hives or skin allergy. *Physical Exam - Vital Signs Last Vital Signs Temp Pulse Resp BP Pulse Ox 98.1 F 96 H 19 128/86 96 05/02/19 10:54 05/02/19 10:54 05/02/19 10:54 05/02/19 10:54 05/02/19 10:54 - Physical Exam Comments: 05/02/19 12:40 PE: GENERAL: Awake, alert, and fully oriented, appears in pain HEAD: No signs of trauma, normocephalic, atraumatic EYES: PERRLA, EOMI, sclera anicteric, conjunctiva clear ENT: Auricles normal inspection, hearing grossly normal, nares patent, oropharynx clear without exudates. Moist mucosa NECK: Normal ROM, supple, no lymphadenopathy, JVD, or masses LUNGS: No distress, speaks full sentences, clear to auscultation bilaterally HEART: Regular rate and rhythm, normal S1 and S2, no murmurs, rubs or gallops, peripheral pulses normal and equal bilaterally. ABDOMEN: Diffusely tender. No rigidity. Soft, normoactive bowel sounds. No guarding, no rebound. No masses EXTREMITIES : Normal inspection, Normal range of motion, no edema. No clubbing or cyanosis NEUROLOGICAL: Cranial nerves II through XII grossly intact. Normal speech, normal gait, no focal sensorimotor deficits SKIN: Warm, Dry, normal turgor, no rashes or lesions noted ED Treatment Course - LABORATORY CBC & Chemistry Diagram: 05/02/19 13:25 05/02/19 13:25 Medical Decision Making - Medical Decision Making 05/02/19 12:32 38 y/o M with hx sickle cell disease p/w two hours of full body pain that awoke him from sleep, with no chest pain or shortness of breath at this time, consistent with sickle cell crisis. Plan: CBC Reticulocytes CMP Lipase CXR EKG Troponin Pain control Dispo: Pending --- On further discussion with Mr. Hernandez, he denies any active prescriptions for pain medication and reports that he has not taken anything for pain today. --- On review of opiate prescription database, he filled a three day prescription for hydromorphone two days ago, as well as two other prescriptions for pain medication from two different pharmacies in the past two weeks. Will discuss with him re: pain control at this time. Discussed with Dr. Stephens, toradol ordered until further discussion with patient. 05/02/19 Oxycodone 5mg ordered for pain. He refused pill as he does not think that it will help. Discussed existing opiate scripts with patient and Dr. Stephens, he reports that he has an existing prescription but that he has not taken any of it today as he felt that the pain was severe enough that his prescription would not help. CMP, TBili, AST, ALT indicative of hemolysis Plan for 2mg dilaudid ---- On reevaluation, he reports that his pain has somewhat improved but is still ongoing. During prior evaluations pain has resolved after second dose of 2mg dilaudid. Additional 2mg dilaudid ordered. Plan to re-assess, discharge once pain controlled given low clinical suspicion for acute chest syndrome. --- On reassessment, patient reports that pain has resolved and is comfortable to go home. Plan for discharge home with follow up. *DC/Admit/Observation/Transfer Diagnosis at time of Disposition: Sickle cell pain crisis - Discharge Dispostion Disposition: HOME Condition at time of disposition: Stable Decision to Admit order: No - Referrals Referrals: Mahdi Martinez MD [Primary Care Provider] - - Patient Instructions Printed Discharge Instructions: DI for Sickle Cell Anemia, Pain Crisis -- Adult Additional Instructions: Follow up with your medical transcription at [facility] tomorrow as scheduled Take your home doses of medication as prescribed Return to the emergency department if you have any new, worsening, or concerning symptoms. - Post Discharge Activity
[2019-05-02] MEDS ORDERED: KETOROLAC TROMETHAMINE 15 MG/ML VIAL IM ONE (12:42)
[2019-05-02] MEDS ORDERED: KETOROLAC TROMETHAMINE 30 MG/1 ML VIAL ONE (13:37)
[2019-05-02] MEDS ORDERED: KETOROLAC TROMETHAMINE 30 MG/1 ML VIAL IVPUSH ONE (13:55)
[2019-05-02 14:00] LABS: BASO % 0.6 % (0-2.0); EOS % 0.6 % (0-4.5); HEMATOCRIT 27.9 % (35.4-49); HEMOGLOBIN 9.7 GM/dL (11.7-16.9); LYMPH % 40.8 % (8-40); MCH 37.1 pg (25.7-33.7); MCHC 34.9 g/dl (32.0-35.9); MEAN CELL VOLUME 106.4 fl (80-96); MEAN PLT VOLUME 7.4 fl (7.5-11.1); MONO % 4.2 % (3.8-10.2); NEUT % 53.8 % (42.8-82.8); PLATELET COUNT 306 K/MM3 (134-434); RBC 2.62 M/mm3 (4.00-5.60); RDW 27.6 % (11.9-15.9); WHITE BLOOD COUNT 6.4 K/mm3 (4.0-10.0)
[2019-05-02] MEDS ORDERED: oxyCODONE HCL 5 MG TABLET PO ONE (14:17)
[2019-05-02 14:23] LABS: BILIRUBIN,TOTAL 1.8 mg/dL (0.2-1); BLOOD UREA NITROGEN 12.1 mg/dL (7-18); CALCIUM 8.9 mg/dL (8.5-10.1); CREATININE 0.7 mg/dL (0.55-1.3); POTASSIUM 3.7 mmol/L (3.5-5.1); TOT PROT 7.5 g/dl (6.4-8.2)
[2019-05-02] MEDS ORDERED: oxyCODONE HCL 5 MG TABLET ONE (14:23)
[2019-05-02] MEDS ORDERED: HYDROmorphone HCL CARPU-JECT 2 MG/1 ML DISP.SYRIN IVPUSH ONE (14:40)
[2019-05-02] MEDS ORDERED: HYDROmorphone HCl 2 MG/ML VIAL ONE ×2 (14:56→15:59)
[2019-05-02] MEDS ORDERED: HYDROmorphone HCL CARPU-JECT 2 MG/1 ML DISP.SYRIN IVPB ONE (15:41)
--- NOTE | 2019-05-02 15:45 | PDOC ---
Attending Attestation - Resident Resident Name: Montana Portillo - ED Attending Attestation I have performed the following: I have examined & evaluated the patient, The case was reviewed & discussed with the resident, I agree w/resident's findings & plan, Exceptions are as noted - HPI HPI: 05/02/19 15:45 38yo M hx sickle cell disease presents to the ED with diffuse body pain for 1 day. Pt reports pain to his back, legs, arms. Denies CP or SOB. Reports this feels like previous crises. Was given 3 day course of dilaudid 2 days ago, but did not take any today because he knew the pills would not work for his pain. Denies fevers, chills, cough. Denies headache, dizziness, focal weakness/ numbness, abd pain, N/V/D. Takes hydroxyurea, folic acid daily. Home Health Outreach Coordinator is at [facility], he has an appointment tomorrow. - Physicial Exam PE: 05/02/19 15:53 GENERAL: Awake, alert, and fully oriented, in no acute distress. Appears uncomfortable. HEAD: No signs of trauma EYES: PERRLA, EOMI, sclera anicteric, conjunctiva clear ENT: Auricles normal inspection, hearing grossly normal, nares patent, oropharynx clear without exudates. Moist mucosa NECK: Normal ROM, supple, no lymphadenopathy, JVD, or masses LUNGS: Breath sounds equal, clear to auscultation bilaterally. No wheezes, and no crackles HEART: Regular rate and rhythm, normal S1 and S2, no murmurs, rubs or gallops ABDOMEN: Soft, nontender, normoactive bowel sounds. No guarding, no rebound. No masses EXTREMITIES: Normal range of motion, no edema. No cords, erythema, or tenderness NEUROLOGICAL: Normal speech, cranial nerves intact, negative pronator drift, 5/ 5 strength in all 4 extremities, normal sensation to light touch in all 4 extremities, normal cerebellar exam, normal gait, normal tone SKIN: Chest with venous catheter in place with no erythema or tenderness around the catheter. Warm, Dry, normal turgor, no rashes or lesions noted. - Medical Decision Making 05/02/19 15:55 38yo M hx sickle cell disease prsents to the ED with sickle cell crisis. Pt is no toxic with no concern for acute chest as no chest pain, fevers. Vitals wnl Exam wnl Labs with reticulocyte count at 5%, mild bili, LFT elevation consistent with hemolysis CXR clear Will treat pain with IV dilaudid 2mg (based on previous doses here) and give fluids, reassess 05/02/19 16:53 Pain significantly improved after 2 doses of IV dilaudid Pt is clinically stable for DC home I discussed the physical exam findings, ancillary test results and final diagnoses with the patient. I answered all of the patient's questions. The patient was satisfied with the care received and felt comfortable with the discharge plan and treatment plan. The patient will call their primary care physician within 24 hours to arrange follow-up and will return to the Emergency Department with any new, persistent or worsening symptoms. Heart Score/ECG Review #1 05/02/19 15:58 Twelve-lead EKG was performed and reviewed by me. Normal sinus rhythm, rate 83. Left axis deviation. T wave inversions in 1 and aVL. LVH changes and septal leads. When compared to previous EKG, no significant change.
[2019-05-02 15:47] LABS: ANISOCYTOSIS 2+; MACROCYTOSIS 1+; OVALOCYTE 1+; PLATELET ESTIMATE NORMAL; TARGET CELLS 1+; TEAR DROP CELLS 1+
[2019-05-02 16:04] VITALS: BP 129/93; PULSE 79
--- NOTE | 2019-05-03 14:14 | EKG ---
Test Reason : Blood Pressure : / mmHG Vent. Rate : 083 BPM Atrial Rate : 083 BPM P-R Int : 150 ms QRS Dur : 130 ms QT Int : 406 ms P-R-T Axes : 048 -35 068 degrees QTc Int : 477 ms NORMAL SINUS RHYTHM LEFT AXIS DEVIATION LEFT VENTRICULAR HYPERTROPHY WITH QRS WIDENING NONSPECIFIC ST ABNORMALITY ABNORMAL ECG Confirmed by WASHINGTON LOMBAROD MD ([id number]) on 05/03/2019 2:14:26 PM Referred By: Confirmed By:WASHINGTON LOMBARDO MD
== END 2019-05-02 17:07 | disposition home or self-care (01) ==
LOC: JER 10:47
PROC: 3E033NZ Introduction of Analgesics, Hypnotics, Sedatives into Peripheral Vein, Percutaneous Approach (ICD-10-PCS; principal; 2019-05-02)
PROC: 3E033NZ Introduction of Analgesics, Hypnotics, Sedatives into Peripheral Vein, Percutaneous Approach (ICD-10-PCS; 2019-05-02)
PROC: 3E0333Z Introduction of Anti-inflammatory into Peripheral Vein, Percutaneous Approach (ICD-10-PCS; 2019-05-02)
DX: D57.00 Hb-SS disease with crisis, unspecified (principal)
CPT/HCPCS: 36415; 71045-TC-FY; 80053; 83690; 84484; 85025; 85044; 93005; 93010; 99285-25